=== PATIENT | male | born 1965 | race Hispanic/Latino ===

== ENCOUNTER 2018-08-24 14:42 | Outpatient (CLI) | payer OTHER | END 2018-08-24 14:43 | disposition home or self-care (01) | LOC: DTY/OP 14:42 | PROVIDERS: ATTEND Nurse Practitioner Family | DX: E78.2 Mixed hyperlipidemia (principal); E11.65 Type 2 diabetes mellitus with hyperglycemia | CPT/HCPCS: 97802 ==

== ENCOUNTER 2018-09-14 09:41 | Observation (INO) | payer OTHER ==
[2018-09-14] MEDS ORDERED: Iopamidol 370 76% 50 ML VIAL FS ONE (09:48)
[2018-09-14] MEDS ORDERED: ISOVUE-370 76%-LOCM 1 ML ONE (09:48)
[2018-09-14] MEDS ORDERED: Morphine 4 MG/ML VIAL ONE ×2 (11:26→19:29)
[2018-09-14] MEDS ORDERED: Ondansetron PF 4 MG/2 ML Vial ONE (11:26)
[2018-09-14 11:38] LABS: #Basophils 0.1 thou/uL (0.0-0.2); #Eosinphils 0.1 thou/uL (0.0-0.7); #Lymphocytes 2.3 thou/uL (1.20-3.40); #Monocytes 0.7 thou/uL (0.11-0.59); #Neutrophils 5.3 thou/uL (1.40-6.50); %Basophils 0.9 % (0.0-1.0); %Eosinophils 1.6 % (0.0-10.0); %Lymphocytes 27.4 % (21.0-51.0); %Neutrophils 62.1 % (42.0-75.0); Hemoglobin 15.3 g/dL (14.0-18.0); Mean Corpuscular HGB CONC 34.1 g/dL (32.0-36.0); Mean Corpuscular Hemoglobin 31.2 pg (27.0-31.0); Mean Corpuscular Volume 91.5 fL (78.0-98.0); Mean Platelet Volume 10.5 fL (7.4-10.4); Platelet Count 146 thou/uL (130-400); RBC Distribution Width 11.2 % (11.5-14.5); Red Blood Cell (RBC) Count 4.89 mill/uL (4.70-6.10); White Blood Cell (WBC) Count 8.5 thou/uL (4.8-10.8)
[2018-09-14 12:06] LABS: ALT (SGPT) 20 U/L (8-55); AST (SGOT) 14 U/L (5-34); Albumin 4.4 g/dL (3.5-5.0); Alkaline Phosphatase 53 U/L (40-150); Anion Gap 12 mmol/L (10-20); BUN (Urea Nitrogen) 11 mg/dL (8.4-25.7); Bilirubin, Total 1.1 mg/dL (0.2-1.2); Calc. Creatinine Clearance 0 mL/min (70-130); Calcium 9.8 mg/dL (7.8-10.44); Carbon Dioxide 25 mmol/L (22-29); Chloride 106 mmol/L (98-107); Estimated GFR-MDRD Greater than 90; Glucose 128 mg/dL (70-105); Lipase 10 U/L (8-78); Protein, Total 7.4 g/dL (6.0-8.3); Sodium 139 mmol/L (136-145)
[2018-09-14 12:22] LABS: Bilirubin Small (Negative); Blood, Urine Negative (Negative); Clarity Clear (Clear); Glucose, Urine (Dipstick) Negative (Negative); Leukocyte Negative (Negative); Nitrite Negative (Negative); Protein, Urine (Dipstick) 30 mg/dL (Neg-Trace); Urobilinogen 0.2 mg/dL (0.2-1.0)
[2018-09-14 12:32] LABS: Bacteria/HPF 1+ HPF (None Seen); Hyaline Casts/LPF NONE SEEN LPF (0-3 Hyaline); RBC/HPF None Seen HPF (0-3); Squamous Epithelial 0-3 HPF (0-3); WBC/HPF None Seen HPF (0-3)
--- NOTE | 2018-09-14 13:30 | CT ---
CT ABDOMEN WITH CONTRAST CT PELVIS WITH CONTRAST: DATE: 09/14/2018 HISTORY: 53-year-old male with acute lower abdominal pain Dr. Rivers discussed the acute appendicitis by telephone with Dr. Marlon Leo of the emergency Department at 1:25 PM on 09/14/2018 COMPARISON: None available TECHNIQUE: IV injection of iodinated contrast media: administered. Oral contrast media:Administered. FINDINGS: The appendix is edematous, thickened to a caliber of 18 mm, and surrounded by edema. No abscess. There is a 2 x 4 x 5 mm calculus at a left renal upper pole calyx. No pyelonephritis. Otherwise jo l kidneys. Abdominal aorta, liver, pancreas, spleen, and adrenals, are normal. Urinary bladder is normal. No colonic diverticulitis. No small bowel dilation. No pneumoperitoneum. IMPRESSION: Positive for acute appendicitis
[2018-09-14] MEDS ORDERED: Piperacillin/Tazobactam 3.375 GM VIAL ONE (13:59)
--- NOTE | 2018-09-14 15:54 | HP ---
HISTORY OF PRESENT ILLNESS: Mr. Pro is a 53-year-old man, who presented to emergency department complaining of intermittent right-sided abdominal pain of 1 month duration. Over the last 4-5 days, however, the pain had become more constant and intensified over the last 2 days, localized to the right lower quadrant. Pain is now associated with multiple episodes of nausea and nonbilious emesis. He denies any diarrhea, fevers, or chills. His pain is described as sharp and occasionally crampy without any radiation and rated at 8-9 out of 10. PAST MEDICAL HISTORY: Significant for; 1. Type 2 diabetes mellitus. 2. Hyperlipidemia. 3. Chronic depression. PAST SURGICAL HISTORY: Pertinent for; 1. Laparoscopic cholecystectomy. 2. Childhood tonsillectomy and adenoidectomy. SOCIAL HISTORY: The patient is . Lives at home with his . He denies any cigarette smoking, ethanol, or illicit drug abuse. FAMILY HISTORY: Notable for diabetes mellitus, hypertension, and heart disease. He denies any family history of cancer in immediate family members. ALLERGIES: ASPIRIN. PRE-HOSPITALIZATION MEDICATIONS: 1. Glipizide 5 mg p.o. daily. 2. Lisinopril 5 mg p.o. daily. 3. Metformin 1000 mg p.o. b.i.d. 4. Paroxetine 20 mg p.o. daily. 5. Trulicity insulins subcutaneous injection weekly. REVIEW OF SYSTEMS: Ten-point review of systems essentially unremarkable except as stated in past medical history and chief complaint. PHYSICAL EXAMINATION: GENERAL: This reveals a 53-year-old normally developed man, who is otherwise coherent and interactive and appears stated age. The patient is alert and oriented x3. He appears to be in no acute distress at the time of my evaluation. VITAL SIGNS: Blood pressure 118/84, pulse 70, respiratory rate is 18, temperature 98.7 degrees Fahrenheit, oxygen saturation 95% on room air. HEENT: Normocephalic and atraumatic. Pupils are equal, round, reactive to light and accommodation. Extraocular muscles are intact bilaterally. No scleral icterus present. HEART: Regular rate and rhythm. No murmurs or gallops auscultated. LUNGS: Clear to auscultation bilaterally. Breathing regular and nonlabored. ABDOMEN: Soft and obese. He has right lower quadrant tenderness to palpation. He has a positive Rovsing sign. Liver and spleen otherwise nonpalpable below costal margins. EXTREMITIES: 2+ radial and pedal pulses bilaterally. No ankle edema is present. NEUROLOGIC: No focal deficits present. LABORATORY DATA: Laboratory findings today include a CBC with 8500 white blood cells, hemoglobin and hematocrit 15.3 and 44.7 respectively, platelet count 146,000. Metabolic profile: Sodium 139, potassium 4.0, chloride is 106, bicarb is 25, BUN 11, creatinine 0.82, glucose 128. AST and ALT normal at 14 and 20 respectively. Serum lipase is also normal at 10. I have personally reviewed CT scan of the abdomen and pelvis which is remarkable for dilated appendix with periappendiceal fat stranding. No pneumoperitoneum or evidence of abscess is noted. IMPRESSION: 1. Acute appendicitis. 2. Type 2 diabetes mellitus. 3. History of chronic depression. PLAN: Laparoscopic appendectomy. I have informed the patient of the above findings and plan. I have also advised him of the risks and benefits of the proposed surgery to include, but not limited to bleeding, infection, injury to bowel or surrounding structures. This information was given to the patient in the presence of his and adult parents at bedside. They all indicated understanding of information given. I have answered their questions. The patient is going to consent for this admission and surgical intervention. Job ID: [id number]
[2018-09-14] MEDS ORDERED: HumaLOG 300 UNITS/3 ML VIAL SC PRN (17:37)
[2018-09-14] MEDS ORDERED: Dextrose 5% in Water 1,000 ML IV PRN (17:37)
[2018-09-14] MEDS ORDERED: Ondansetron ODT 4 MG TAB PO PRN (17:37)
[2018-09-14] MEDS ORDERED: Ondansetron PF 4 MG/2 ML Vial IVP PRN (17:37)
[2018-09-14] MEDS ORDERED: Morphine 4 MG/ML VIAL SLOW IVP PRN (17:37)
[2018-09-14] MEDS ORDERED: Dextrose 50% Abboject 50 ML SYRINGE SLOW IVP PRN (17:37)
[2018-09-14] MEDS: Morphine 4 MG/ML VIAL SLOW IVP PRN ×2 (19:30→22:58)
[2018-09-14] MEDS: Sodium Chloride 0.9% 1,000 ML IV SCH ×2 (20:15→22:57)
[2018-09-14] MEDS ORDERED: Enoxaparin Sodium 40 MG/0.4 ML SYRINGE SC SCH (21:00)
[2018-09-14 23:25] VITALS: BMI 33.5
[2018-09-15] MEDS: Morphine 4 MG/ML VIAL SLOW IVP PRN (03:54)
[2018-09-15] MEDS: Piperacillin/Tazobactam 4.5 GM in Sodium Chloride 0.9% 100 ML IVPB SCH ×3 (03:54→17:49)
[2018-09-15] MEDS ORDERED: Bupivacaine/Epinephrine 0.25% 30 ML VIAL ONE (07:43)
[2018-09-15] MEDS ORDERED: Midazolam HCl 2 mg/2 ml Vial ONE (10:11)
[2018-09-15] MEDS ORDERED: Fentanyl 100 MCG/2 ML VIAL ONE ×2 (10:11→11:40)
[2018-09-15] MEDS ORDERED: Promethazine HCl 25 MG/ML VIAL IM PRN (11:32)
[2018-09-15] MEDS ORDERED: Ondansetron HCl/PF 4 MG/2 ML Vial IVP PRN (11:32)
[2018-09-15] MEDS ORDERED: Promethazine HCl 25 MG/ML VIAL SLOW IVP PRN (11:32)
[2018-09-15 12:39] VITALS: BP 109/72; TEMP 98.1
--- NOTE | 2018-09-15 13:40 | OP ---
DATE OF PROCEDURE: 09/15/2018 PREOPERATIVE DIAGNOSIS: Acute appendicitis. POSTOPERATIVE DIAGNOSIS: Acute appendicitis. OPERATION PERFORMED: Laparoscopic appendectomy. ANESTHESIA: General endotracheal. ESTIMATED BLOOD LOSS: 5 mL. FLUIDS GIVEN: 800 mL crystalloids. COUNTS: Sponge and instrument counts were verified as correct x2. COMPLICATIONS: None apparent at the time of operation. INDICATIONS FOR OPERATION: This is a 53-year-old man, who presented with insidious onset abdominal pain. The patient has been having recurrent abdominal pain over the last 1 month. Pain had worsened this admission. Clinical radiographic examination was consistent with acute appendicitis for which the patient was brought to the operating room for appendectomy. Findings were consistent with a retrocecal appendix, which was inflamed, but not perforated. Also noted was some fat creeping involving distal ileum as well as some segments of sigmoid colon. No evidence of perforation or abscess was noted. DESCRIPTION OF PROCEDURE: Informed consent was obtained from the patient, he was brought to the operating room and placed in supine position. Following general anesthesia, abdomen was sterilely prepped and draped in usual fashion. Skin below the umbilicus was infiltrated with 0.25% Marcaine with epinephrine. A small curvilinear infraumbilical incision was made using 11 scalpel. Umbilical stalk was grasped with Armida and elevated. Veress needle was inserted through the incision, placed in the peritoneal cavity through which the abdomen was insufflated with 3 L of CO2 gas noting intra-abdominal pressure of 2 mmHg. Following abdominal insufflation, Veress needle was removed, 5 mm trocar introduced using a Visiport under laparoscopy. Laparoscopy confirmed proper placement of the port, no injuries to underlying structures. Additional laparoscopy revealed right lower quadrant partially obscured by omental adhesions. Under direct laparoscopy, two 5 mm suprapubic and left lower quadrant ports were placed after the overlying skin were infiltrated with 0.25% Marcaine with epinephrine and appropriate incision was made. The patient was placed in a Trendelenburg position, rotated to his left. I then used a Remoteige grasper to bluntly take down omental adhesions off the right lower quadrant. The distal ileum was completely welded to the right lateral gutter obscuring retrocecal appendix. Using the LigaSure device, lateral wall fibrotic attachments were taken down mobilizing the distal ileum allowing us access into the retrocecal space where the inflamed appendix was noted. I then introduced the Endo Tony forceps through the suprapubic port site grasping the appendix, which was elevated. Using LigaSure device, the mesoappendix was sterilely divided down to the base. The appendix itself was divided at the appendico-cecal junction between endo-loops. The appendix was delivered off the abdominal cavity using the EndoCatch. Operative site was inspected for good hemostasis. The small bowel was run down to proximal 2 feet finding no Meckel diverticulum. Laparoscopy revealed fat creeping involving the segment of sigmoid colon, which was adhered to the anterior abdominal wall. When the adhesions were taken down, there was no evidence of perforation or abscess present. Finding no other pathology, laparoscopy was terminated. The abdomen was desufflated. All ports and instruments were removed and accounted for. Skin incision was closed using 4-0 Monocryl suture in subcuticular fashion. Dermabond was applied over incisional closure. The patient tolerated the operation without any apparent complication and was returned to recovery room in satisfactory condition. Job ID: [id number]
--- NOTE | 2018-09-15 16:44 | DIS ---
DATE OF ADMISSION: 09/14/2018 DATE OF DISCHARGE: 09/15/2018 DISCHARGING PHYSICIAN: Vin Llanes DO ADMITTING DIAGNOSIS: Acute appendicitis. DISCHARGE DIAGNOSIS: Acute appendicitis. OPERATION PERFORMED: Laparoscopic appendectomy on 09/15/[address] Llanes. Please see a separate dictation for operative report. HISTORY AND HOSPITAL COURSE: This is a 53-year-old man, presented with intermittent abdominal pain of 1 month duration. A few days prior to presentation, the pain had intensified and remained persistent in the right lower quadrant. Clinical radiographic examination was consistent with acute appendicitis, for which the patient was taken to the operating room today for an uneventful laparoscopic appendectomy. Following surgery, the patient was readmitted to the surgical floor. He is awake and alert. His pain is adequately controlled on analgesics. He is tolerating clear liquid diet. DIAGNOSTIC STUDIES: He will be discharged home today with the following instructions: 1. Follow up with me in the Surgery Clinic in 2 weeks. 2. He is to resume all pre-hospital medications as prescribed by his primary care physician. 3. He is given a prescription for Augmentin 875 mg #10 to be taken one p.o. b.i.d. until all taken. 4. Additionally, a prescription for tramadol 50 mg #30 was given, to be taken 1 to 2 p.o. q.6 hours p.r.n. pain. He may alternate this with acetaminophen 1000 mg p.o. q.6 hours p.r.n. pain or ibuprofen 800 mg p.o. q.8 hours p.r.n. pain. 5. The patient is instructed to avoid weight lifting in excess of 20 pounds until he has been seen by me. 6. He may shower effective tomorrow and avoid soaking himself in a bathtub or swimming until he has been released by me. This information was given to the patient in the presence of his nurse and family at bedside. The patient indicates understanding of information given. I answered his questions. Job ID: [id number]
[2018-09-15] MEDS: Sodium Chloride 0.9% 1,000 ML IV SCH (17:49)
== END 2018-09-15 15:04 | disposition home or self-care (01) ==
LOC: ERS 09:41 → SURG A 22:44
PROVIDERS: ADMIT Surgery; ATTEND Surgery
PROC: 0DTJ4ZZ Resection of Appendix, Percutaneous Endoscopic Approach (ICD-10-PCS; principal; 2018-09-15)
DX: K35.80 Unspecified acute appendicitis (principal); E11.9 Type 2 diabetes mellitus without complications; E78.5 Hyperlipidemia, unspecified; F32.9 Major depressive disorder, single episode, unspecified; I11.9 Hypertensive heart disease without heart failure; Z79.4 Long term (current) use of insulin; Z79.899 Other long term (current) drug therapy; Z88.8 Allergy status to other drugs, medicaments and biological substances
CPT/HCPCS: 36416; 74177; 80053; 81003; 81015; 83690; 85025; 88304; 96361; 96365; 96366; 96375; 96376; G0378; J2250; J2270; J2405; J2543; J3010; J3490

== ENCOUNTER 2019-09-18 15:15 | Outpatient (CLI) | payer OTHER ==
--- NOTE | 2019-09-18 15:28 | RAD ---
EXAM: Two views chest PROVIDED CLINICAL HISTORY: Cough for 9 days. Negative Covid test. COMPARISON: None FINDINGS: Cardiac silhouette and pulmonary vasculature are within normal limits. The lungs are clear. The osse ous structures have a normal appearance. Surgical clips overlie the right upper quadrant. IMPRESSION: No acute cardiopulmonary process.
== END 2019-09-18 15:16 | disposition home or self-care (01) ==
LOC: SCSRAD 15:15
PROVIDERS: ATTEND Nurse Practitioner Family
DX: R05 Cough (principal)
CPT/HCPCS: 71046

== ENCOUNTER 2020-04-28 05:25 | Emergency (ER) | payer OTHER ==
[2020-04-28] MEDS ORDERED: Dexamethasone 10 MG/ML VIAL ONE (06:22)
[2020-04-28] MEDS ORDERED: Acetaminophen 500 MG TAB ONE (06:22)
[2020-04-28 06:26] LABS: ALT (SGPT) 50 U/L (8-55); AST (SGOT) 45 U/L (5-34); Alkaline Phosphatase 60 U/L (40-110); Anion Gap 16 mmol/L (10-20); BUN (Urea Nitrogen) 15 mg/dL (8.4-25.7); Bilirubin, Total 0.6 mg/dL (0.2-1.2); Calc. Creatinine Clearance 0 mL/min (70-130); Calcium 8.4 mg/dL (7.8-10.44); Carbon Dioxide 20 mmol/L (22-29); Chloride 102 mmol/L (98-107); Globulin 3.3 g/dL (2.4-3.5); Glucose 279 mg/dL (70-105); Potassium 3.7 mmol/L (3.5-5.1); Protein, Total 7.3 g/dL (6.0-8.3); Sodium 134 mmol/L (136-145)
[2020-04-28 06:29] LABS: #Lymphocytes 0.8 thou/uL (1.20-3.40); #Monocytes 0.2 thou/uL (0.11-0.59); #Neutrophils 3.1 thou/uL (1.40-6.50); %Basophils 0.7 % (0.0-1.0); %Eosinophils 0.9 % (0.0-10.0); %Lymphocytes 19.7 % (21.0-51.0); %Monocytes 5.8 % (0.0-10.0); Band 7 % (5-11); Hemoglobin 15.4 g/dL (14.0-18.0); Lymphocytes 17 % (21-51); MDiff Complete? YES; Mean Corpuscular HGB CONC 35.1 g/dL (32.0-36.0); Mean Corpuscular Hemoglobin 31.5 pg (27.0-31.0); Mean Platelet Volume 9.6 fL (7.4-10.4); Monocytes 7 % (0-10); Neutrophil 69 % (42-75); Platelet Count 116 thou/uL (130-400); Platelet Morphology Comment Appears Decreased; RBC Distribution Width 10.7 % (11.5-14.5); Red Blood Cell (RBC) Count 4.88 mill/uL (4.70-6.10); White Blood Cell (WBC) Count 4.2 thou/uL (4.8-10.8)
[2020-04-28] MEDS ORDERED: Iopamidol 370 76% 100 ML VIAL ONE (09:47)
--- NOTE | 2020-04-28 10:50 | CT ---
CTA CHEST UTILIZING IV CONTRAST PE PROTOCOL 3D REFORMATTED IMAGING: Date: 04/28/2020 COMPARISON: None. FINDINGS: No definite central or segmental pulmonary embolus demonstrated. There are mildly prominent right hil ar and mediastinal lymph nodes. There are patchy areas of scattered ground-glass air space opacity co nsistent with an atypical pneumonia usually seen with COVID-19 infection. There is diffuse fatty infi ltration of the liver. The gallbladder is surgically absent. No acute osseous abnormality is demonstr ated. There is scattered degenerative change. IMPRESSION: 1. No central or segmental pulmonary embolus. 2. Multifocal pneumonia. 3. Mildly enlarged right infrahilar and mediastinal lymphadenopathy likely reactive in nature. 4. Fatty liver. 5. Cholecystectomy. POS: BH
== END 2020-04-28 06:55 | disposition home or self-care (01) ==
LOC: ERS 05:25
DX: U07.1 COVID-19 (principal); J12.82 Pneumonia due to coronavirus disease 2019; E11.9 Type 2 diabetes mellitus without complications; E78.5 Hyperlipidemia, unspecified; E78.00 Pure hypercholesterolemia, unspecified; I10 Essential (primary) hypertension
CPT/HCPCS: 71275; 80053; 84484; 85025; 85379; 93005; 96372; J1100; Q9967

== ENCOUNTER 2020-05-23 15:06 | Outpatient (CLI) | payer OTHER | END 2020-05-23 15:07 | disposition home or self-care (01) | LOC: RAD-FRANK 15:06 | PROVIDERS: ATTEND Nurse Practitioner Family | DX: M25.512 Pain in left shoulder (principal); M19.012 Primary osteoarthritis, left shoulder ==

== ENCOUNTER 2020-08-07 12:33 | Outpatient (CLI) | payer OTHER | END 2020-08-07 12:34 | disposition home or self-care (01) | LOC: SCSMRI 12:33 | PROVIDERS: ATTEND Orthopaedic Surgery | DX: M19.012 Primary osteoarthritis, left shoulder (principal); M75.112 Incomplete rotator cuff tear or rupture of left shoulder, not specified as traumatic; R60.0 Localized edema ==